=== PATIENT | female | born 1970 | race Caucasian/White ===

== ENCOUNTER 2017-08-11 14:50 | Emergency (ER) | payer OTHER ==
[2017-08-11] MEDS ORDERED: fentaNYL 100 MCG/2 ML INJ NASAL ONE (15:58)
[2017-08-11] MEDS ORDERED: OXYCODONE/APAP 5/325 TAB PO ONE (15:58)
--- NOTE | 2017-08-11 15:58 | EDPHY ---
General - History Smoking Status: Never smoked Time Seen by Provider: 08/11/17 15:11 Narrative: CHIEF COMPLAINT: Ankle pain HISTORY OF PRESENT ILLNESS: Patient complains of severe right ankle pain, mild right shoulder pain and mild right hip pain status post fall. She reports that she has had ongoing problems with this right foot ankle, including tendinous injuries that she is awaiting surgical evaluation for. This stems from a February injury. She does not know the exact anatomic structures involved. She says because of this, at time she has "buckling of the ankles." This happened again today while at work. She was walking on her ankle buckled, and she developed immediate pain in the right foot and ankle. She also fell to the ground, striking her right shoulder right hip on the grass. She complains of mild pain in the right shoulder and hip. She complains of severe, intolerable pain in the right ankle and foot. No numbness or tingling. No position of comfort. No head strike or loss of conscious. No neck pain or headache. No other associated complaints or modifying factors. ESTABLISHED ORTHOPEDIST[facility] orthopedistDr. Tang REVIEW OF SYSTEMS: Ten systems reviewed and are negative unless otherwise noted in the HPI PAST MEDICAL HISTORY: Asperger's, breast cancer, migraines, asthma, orthopedic SOCIAL HISTORY: Nonsmoker FAMILY HISTORY: Noncontributory EXAMINATION General Appearance: Alert, tearful Cardiovascular: Right DP pulse and PT pulses are both 2+. Good signs of perfusion to the right lower extremity Neurological: A&O, sensory is intact to the dorsum of the foot plantar surface. Unable to test strength due to intolerance from pain Skin: Warm and dry, no rash. No petechiae. No purpura. The right foot and ankle are warm and without cyanosis or pallor Extremities: Significantly tender palpation of the right foot, right lateral malleolus, right medial malleolus. Unable to test range of motion due to pain. Mild tenderness to the right shoulder and right anterior superior iliac spine. Psychiatric: Mood and affect normal DIFFERENTIAL DIAGNOSES: Including but not limited to ankle sprain, fracture, dislocation, subluxation, strain MDM: 3:25 p.m. Acute right ankle sprain with ongoing orthopedic injuries. X-rays pending at this time. I have recommended offered x-ray of the right shoulder and of the pelvis and right hip but she has declined. She feels these are soft tissue related. 3:50 p.m. Acute sprain of the right ankle in the presence of ongoing ankle and foot pathology. Patient's pain seems out of proportion to direct examination, thus I have ordered intranasal fentanyl 100 mcg as well as 2 oral Percocet. She will be placed in a Cuco boot. I will discuss with case management for assistance as she has become very aggravated and verbally abusive toward myself and the RN. She has not been physically abusive. 4:10 p.m. Saima RN will assist with this patient. 4:40 p.m. Saima has visit with the patient. I have also sat down and discussed with the patient further. Upon chart review discovers that the patient actually has a history of Asperger's. This explains her difficulty communicating with this. No in this we have change our approach with the patient, and She is now much more calm. She has agreed to take the intranasal fentanyl. She has informed us that she has a knee scooter at home. I recently thought she had walked to the bathroom but she actually crawled to the bathroom. She is uncomfortable with the Cuco boot with the amount of pain that is applied to her. Thus we will try posterior splint. We will then help her to the vehicle in a wheelchair and she can use her knee scooter at home. She has requested that we send her records to pain around the Orthopedics and we will do so with her permission and signed release. She has agreed to this plan. 5:00 p.m. Patient has had a posterior splint placed. We are assisting her out to a vehicle in a wheelchair. We provided a prescription for Percocet and she is comfortable using her knee scooter at home. She is very apologetic for the interaction she had with the nursing staff. SUPERVISION: This patient was independently evaluated without direct involvement of or examination by the attending physician. ED Precautions: Worsening pain. Erythema, edema, cyanosis, pallor, paresthesia or anesthesia. (Sixto Hudson) Medical Decision Making: I did not see this patient while she was in the emergency department. However her care was discussed PA while the patient was in the department. I agree with treatment plan and management (Raleigh Raza) - Objective Vital Signs: Initial Vital Signs Temperature (C) 98.2 F 08/11/17 14:56 Heart Rate 75 08/11/17 14:56 Respiratory Rate 16 08/11/17 14:56 Blood Pressure 136/91 H 08/11/17 14:56 O2 Sat (%) 96 08/11/17 14:56 O2 Delivery Mode Room Air Allergies/Adverse Reactions: levofloxacin [From Levaquin] Allergy (Verified 08/11/17 14:55) propylene glycol Allergy (Verified 08/11/17 14:55) Sulfa (Sulfonamide Antibiotics) Allergy (Verified 08/11/17 14:55) Home Medications: Medication Instructions Recorded Anastrozole 08/11/17 Ibuprofen 08/11/17 oxyCODONE HCL/ACETAMINOPHEN 1 each PO Q4-6PRN PRN #17 tablet 08/11/17 [Percocet 5-325 mg Tablet] Medications Given: Discontinued Medications Fentanyl (Sublimaze) 100 mcg NASAL EDNOW ONE Stop: 08/11/17 15:59 Last Admin: 08/11/17 16:38 Dose: 100 mcg Oxycodone/Acetaminophen (Percocet 5/325) 2 tab PO EDNOW ONE Stop: 08/11/17 15:59 Last Admin: 08/11/17 16:09 Dose: 2 tab Departure - Departure Disposition: Home, Routine, Self-Care Clinical Impression: Severe sprain of right ankle Qualifiers: Encounter type: initial encounter Qualified Code(s): S93.401A - Sprain of unspecified ligament of right ankle, initial encounter Shoulder contusion Qualifiers: Encounter type: initial encounter Laterality: right Qualified Code(s): S40.011A - Contusion of right shoulder, initial encounter Contusion, hip Qualifiers: Encounter type: initial encounter Laterality: right Qualified Code(s): S70.01XA - Contusion of right hip, initial encounter Fall Qualifiers: Encounter type: initial encounter Qualified Code(s): W19.XXXA - Unspecified fall, initial encounter Condition: Good Instructions: Ankle Sprain (ED), Contusion in Adults (ED), Foot Sprain (ED) Additional Instructions: 1. Recommend ice and elevation 2. Recommend walker or wheelchair as needed for pain 3. Recommend follow up with worker's compensation Clinic Referrals: Umesh Boucher MD [Medical Doctor] - As per Instructions Stand Alone Forms: Work Comp Follow Up, Work Excuse Prescriptions: oxyCODONE HCL/ACETAMINOPHEN [Percocet 5-325 mg Tablet] 1 each PO Q4-6PRN PRN # 17 tablet PRN Reason: Pain, Breakthrough
[2017-08-11] MEDS ORDERED: fentaNYL 100 MCG/2 ML INJ ONE ×2 (16:01→16:16)
[2017-08-11 17:12] VITALS: BP 142/82
--- NOTE | 2017-08-11 20:14 | ASDISCHSUM ---
Discharge Information Plan Status:Home with No Needs Medically Cleared to Leave: Discharge Date:08/11/2017 05:12 PM CM D/C Disposition:Home, Routine, Self-Care ADT D/C Disposition:Home, Routine, Self-Care Projected Discharge Date:08/11/2017 05:12 PM Transportation at D/C:Family Discharge Delay Reason: Follow-Up Date:08/11/2017 05:12 PM Discharge Slot: Final Diagnosis: Placement Information Patient Contact Information Contact Name:OLIVIER Relationship: Address:[address] [address] Work Phone: City:[place] Alternate Phone: [facility]/Zip Code:[place] [address] Email: Financial Information Financial Class:Worker's Compensation Primary Plan Desc:FIFI Lozano Primary Plan Number:[id number] Secondary Plan Desc: Secondary Plan Number: Assessment Information [facility] CM Progress Note CM Note CM Note Notes: Pt presented to the ED for right ankle sprain. Pt has a previous right ankle injury (Workman's comp) that is being followed by Dr Hurt at [facility] in [place], [place]. Pt requested her ED visit records be faxed to Dr. Hurt. Pt signed R.O.I; original to be scanned into chart. This CM faxed ED Provider Report and x-ray results to Dr Hurt's office (fax:[phone]) and in comments section requested they consider getting pt a follow up appt as soon as possible. Pt states he next appt with Dr Hurt is 08/29/17. Pt was also provided a CD of her xray. Pt and her were provided a list of [employer] companies and Loan closets in case pt needs a walker or wheelchair. CM available for further assistance. Date Signed: 08/11/2017 08:12 PM Electronically Signed By:Saima Nichols RN Intervention Information Intervention Type:Education Family/Patient Date of Service:08/11/2017 08:12 PM Patient Type:Emergency Room Staff Member:MARCIA Nichols [place] Hours:0.25 Discipline:Substation Maintenance Technician Severity: Comment:regarding DME and loan closet options Intervention Type:Post Acute Communication Date of Service:08/11/2017 08:12 PM Patient Type:Emergency Room Staff Member:MARCIA Nichols [place] Hours:0.25 Discipline:Substation Maintenance Technician Severity: Comment:Faxed records to pt's dusty MOORE
== END 2017-08-11 17:12 | disposition home or self-care (01) ==
DX: S93.401A Sprain of unspecified ligament of right ankle, initial encounter (principal); S40.011A Contusion of right shoulder, initial encounter; S70.01XA Contusion of right hip, initial encounter; J45.909 Unspecified asthma, uncomplicated; Z85.3 Personal history of malignant neoplasm of breast; W18.09XA Striking against other object with subsequent fall, initial encounter; Y92.69 Other specified industrial and construction area as the place of occurrence of the external cause; Y99.0 Civilian activity done for income or pay; Y93.89 Activity, other specified
CPT/HCPCS: J3010

== ENCOUNTER → 2017-10-06 | Outpatient (CLI) | payer BC | LOC: FIMAGING 11:20 | PROVIDERS: ATTEND Internal Medicine Hematology & Oncology | DX: N63.10 Unspecified lump in the right breast, unspecified quadrant (principal); Z85.3 Personal history of malignant neoplasm of breast ==

== ENCOUNTER 2017-10-09 09:36 | Emergency (ER) | payer BC ==
[2017-10-09] MEDS ORDERED: NS 1,000 ML IV ONE (10:22)
[2017-10-09] MEDS ORDERED: RANITIDINE 50 MG/2 ML VIAL IVP ONE (10:22)
[2017-10-09] MEDS ORDERED: METOCLOPRAMIDE 10 MG/2 ML VIAL IVP ONE (10:22)
[2017-10-09] MEDS ORDERED: KETOROLAC 30 MG/1 ML SDV IVP ONE (10:22)
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
[2017-10-09 11:12] VITALS: BP 105/75
== END 2017-10-09 11:50 | disposition home or self-care (01) ==
LOC: CED 09:36
DX: T78.40XA Allergy, unspecified, initial encounter (principal); J45.909 Unspecified asthma, uncomplicated; E86.9 Volume depletion, unspecified; Z85.3 Personal history of malignant neoplasm of breast
CPT/HCPCS: 96374; J1200; J1885; J2765; J2780

== ENCOUNTER → 2017-10-16 | Outpatient (CLI) | payer BC | LOC: FIMAGING 13:39 | PROVIDERS: ATTEND Internal Medicine Hematology & Oncology | DX: Z13.820 Encounter for screening for osteoporosis (principal); M85.89 Other specified disorders of bone density and structure, multiple sites ==